=== PATIENT | female | born 1990 | race Caucasian/White ===

== ENCOUNTER 2019-10-28 16:11 | Inpatient (IN) | payer MEDICAID ==
[~2019-10-28] VITALS: Ht 165.1 cm; Wt 75.9 kg
[2019-10-28 16:57] LABS: MEAN CORPUSCULAR HGB CONC 32.2 g/dL (32.4-35.8); MEAN CORPUSCULAR VOLUME 90.1 fL (80-100); MEAN PLATELET VOLUME 8.1 fL (7.4-10.4); PLATELET COUNT 237 x10^3/uL (130-400); RED BLOOD COUNT 3.83 x10^6/uL (3.82-5.3); RED CELL DISTRIBUTION WIDTH 15.1 % (9.6-15.2)
[2019-10-28] MEDS ORDERED: CITA10TA4 PO (16:58)
[2019-10-28] MEDS ORDERED: NORG1TAB6 PO (16:58)
--- NOTE | 2019-10-28 16:58 | NUR ---
PT SEEN AT [facility] EARLY TODAY +PYELONEPHRITIS AND GIVEN ZOFRAN, DILAUDID, ROCEPHIN, TORADOL. WAS D/C HOME WITH RX FOR ZOFRAN, PERCOCET, BACTRIM. PT RPTS THAT WHEN SHE GOT HOME SHE "ALMOST FROM HYPOTHERMIA A REACTION TO THE MEDICATIONS THEY GAVE ME. I COULDN'T FEEL MY PULSE AND I FELT FREEZING, I HAD TO SIT IN THE BATHTUB FOR 3 HOURS WIHT MY ADDING BOILING WATER TO KEEP ME FROM DIEING" I LOOKED UP THE MEDICATIONS THAT THEY GAVE ME AND THEY CAN CAUSE SERATONIN SYNDROME. "I DON'T WANT TO " PT IS VERY ANXIOUS WITH RAPID FIRE SPEECH, MONITORS PLACED, TEMP 102.3 HR 155 SLOWS TO 130'S ONCE SHE RELAXES. DR VANEGAS AT BEDSIDE, PLAN FOR ADMIT DISCUSSED AND QUESTIONS ANSWERED. CALL LIGHT W/I REACH. URINE COLLECTED AND SENT TO LAB.
[2019-10-28 17:00] LABS: ALANINE AMINOTRANSFERASE 26 U/L (12-78); ALBUMIN 2.9 g/dL (3.4-5.0); ANION GAP 8 mmol/L (5-15); CALCIUM 8.7 mg/dL (8.5-10.1); CHLORIDE 101 mmol/L (98-107)
[2019-10-28] MEDS ORDERED: ACETAMINOPHEN 325 MG TABLET PO ONE (17:00)
[2019-10-28] MEDS ORDERED: SODIUM CHLORIDE 0.9% 1,000ML IVBOLUS ONE (17:00)
[2019-10-28 17:05] LABS: ALKALINE PHOSPHATASE 150 U/L (45-117); BILIRUBIN,TOTAL 0.6 mg/dL (0.2-1.0); CREATININE 0.87 mg/dL (0.55-1.02); TOTAL PROTEIN 7.1 g/dL (6.4-8.2)
[2019-10-28] MEDS ORDERED: ACETAMINOPHEN 325 MG TABLET ONE ×2 (17:06→17:13)
[2019-10-28] MEDS ORDERED: POTASSIUM CHLORIDE 20 MEQ TAB.ER.PRT PO ONE (17:26)
[2019-10-28 17:48] LABS: BASOPHILS # (AUTO) 0.03 x10^3/uL (0-0.1); BASOPHILS % (AUTO) 0 % (0-1); EOSINOPHILS # (AUTO) 0.06 x10^3/uL (0-0.4); EOSINOPHILS % (AUTO) 0 % (1-7); LYMPHOCYTES # (AUTO) 0.73 x10^3/uL (1-3.4); LYMPHOCYTES % (AUTO) 4 % (22-44); MD SCAN; MONOCYTES # (AUTO) 1.68 x10^3/uL (0.2-0.8); MONOCYTES % (AUTO) 9 % (2-9); NEUTROPHILS # (AUTO) 17.17 x10^3/uL (1.8-6.8); NEUTROPHILS % (AUTO) 87 % (42-75)
[2019-10-28 18:09] LABS: MICROSCOPIC INDICATED
[2019-10-28 18:10] LABS: CULTURE INDICATED? YES
[2019-10-28] MEDS ORDERED: POTASSIUM CHLORIDE 20 MEQ TAB.ER.PRT ONE (18:17)
--- NOTE | 2019-10-28 18:21 | NUR ---
PT MEDICATED PER EMAR. PT TOLERATED WELL.
[2019-10-28] MEDS ORDERED: ACETAMINOPHEN 325 MG TABLET PO PRN (18:30)
[2019-10-28] MEDS ORDERED: LABETALOL 5MG/ML, 20ML IVPush PRN (18:30)
[2019-10-28] MEDS ORDERED: morphine SULFATE 10 MG/ML, 1ML IVPush PRN (18:30)
[2019-10-28] MEDS ORDERED: IBUPROFEN 600 MG TABLET PO PRN (18:30)
[2019-10-28] MEDS ORDERED: DOCUSATE 100 MG CAPSULE PO PRN (18:30)
[2019-10-28] MEDS ORDERED: HEPARIN 5,000 UNITS/ML, 1ML ONE (18:54)
[2019-10-28] MEDS ORDERED: NICOTINE 7 MG/24 HR PATCH.TD24 ONE (18:54)
--- NOTE | 2019-10-28 19:06 | NUR ---
report given to taylor aguilar.
--- NOTE | 2019-10-28 19:09 | NUR ---
BS REPORT RECEIVED FROM MARNI CYR. PT RESTING ON [place] WITH FAMILY AT FOR SUPPORT. PT ON ALL MONITORING, CALL LIGHT WITHIN REACH, ALL SAFETY MEASURES IN PLACE. PT UPDATED ON POC.
--- NOTE | 2019-10-28 20:08 | NUR ---
REPORT CALLED TO MARNI HENDRICKSON.
[2019-10-28] MEDS: NICOTINE 7 MG/24 HR PATCH.TD24 TD SCH (20:10)
[2019-10-28] MEDS: HEPARIN 5,000 UNITS/ML, 1ML SQ SCH (20:13)
[2019-10-28] MEDS: LORazepam 0.5MG TABLET PO PRN (21:47)
[2019-10-28] MEDS: KETOROLAC 30 MG/1 ML IV PRN (21:47)
[2019-10-28 21:59] VITALS: BP 114/72
[2019-10-28] MEDS: NS + 20MEQ KCL 1,000 ML IV SCH (22:49)
[2019-10-29 01:24] VITALS: BP 109/74
[2019-10-29] MEDS: HEPARIN 5,000 UNITS/ML, 1ML SQ SCH ×3 (04:12→19:56)
[2019-10-29] MEDS: NS + 20MEQ KCL 1,000 ML IV SCH ×2 (05:53→16:44)
[2019-10-29 06:25] LABS: BASOPHILS # (AUTO) 0.04 x10^3/uL (0-0.1); BASOPHILS % (AUTO) 0 % (0-1); EOSINOPHILS # (AUTO) 0.37 x10^3/uL (0-0.4); EOSINOPHILS % (AUTO) 3 % (1-7); LYMPHOCYTES # (AUTO) 1.54 x10^3/uL (1-3.4); LYMPHOCYTES % (AUTO) 13 % (22-44); MD NO; MEAN CORPUSCULAR HGB CONC 32.7 g/dL (32.4-35.8); MEAN CORPUSCULAR VOLUME 91.8 fL (80-100); MEAN PLATELET VOLUME 8.4 fL (7.4-10.4); MONOCYTES # (AUTO) 1.33 x10^3/uL (0.2-0.8); MONOCYTES % (AUTO) 12 % (2-9); NEUTROPHILS # (AUTO) 8.28 x10^3/uL (1.8-6.8); NEUTROPHILS % (AUTO) 72 % (42-75); PLATELET COUNT 179 x10^3/uL (130-400); RED BLOOD COUNT 3.21 x10^6/uL (3.82-5.3); RED CELL DISTRIBUTION WIDTH 15.4 % (9.6-15.2)
[2019-10-29 06:30] LABS: ANION GAP 5 mmol/L (5-15); CALCIUM 8.1 mg/dL (8.5-10.1); CHLORIDE 113 mmol/L (98-107); CREATININE 0.66 mg/dL (0.55-1.02)
[2019-10-29 06:56] VITALS: BP 111/75
[2019-10-29] MEDS: KETOROLAC 30 MG/1 ML IV PRN ×3 (08:43→23:24)
[2019-10-29 12:07] VITALS: BP 109/77
[2019-10-29] MEDS: CEFTRIAXONE PMX 1GM/50ML 50 ML IV SCH (12:45)
[2019-10-29] MEDS: LORazepam 0.5MG TABLET PO PRN (15:17)
[2019-10-29 18:44] VITALS: BP 115/82
[2019-10-29] MEDS: NICOTINE 7 MG/24 HR PATCH.TD24 TD SCH (19:56)
[2019-10-30] MEDS: NS + 20MEQ KCL 1,000 ML IV SCH ×2 (00:27→09:22)
[2019-10-30] MEDS: CEFTRIAXONE PMX 1GM/50ML 50 ML IV SCH (00:27)
[2019-10-30 01:07] VITALS: BP 121/83
[2019-10-30] MEDS: HEPARIN 5,000 UNITS/ML, 1ML SQ SCH ×2 (04:02→12:00)
[2019-10-30] MEDS: KETOROLAC 30 MG/1 ML IV PRN (06:32)
[2019-10-30 07:57] VITALS: BP 121/84
[2019-10-30] MEDS ORDERED: CEFD300C37 PO (12:18)
== END 2019-10-30 13:15 | disposition home or self-care (01) | DRG 872 ==
LOC: ED 17:17 → EDIP 18:22 → 4EST 20:46 → OBSVTOIN 10-29 11:36
PROVIDERS: ADMIT Family Medicine; ATTEND Family Medicine
DX: A41.9 Sepsis, unspecified organism (principal); F15.20 Other stimulant dependence, uncomplicated; N10 Acute pyelonephritis; E87.6 Hypokalemia; F17.210 Nicotine dependence, cigarettes, uncomplicated; F41.9 Anxiety disorder, unspecified
CPT/HCPCS: 36415; 71046; 80048; 80053; 81001; 83605; 84703; 85025; 87040; 87086; 93005; 96360; G0378; J0696; J1644; J1885; J3480; J7030